=== PATIENT | male | born 1960 | race Caucasian/White ===

== ENCOUNTER 2025-06-02 09:00 | Outpatient (CLI) | payer MEDICARE | END 2025-06-02 09:01 | disposition home or self-care (01) | LOC: CSHCP 09:00 | PROVIDERS: ATTEND Nurse Practitioner Family | DX: R06.2 Wheezing (principal); R94.2 Abnormal results of pulmonary function studies | CPT/HCPCS: 94060; 94664; 94726; 94729; 94760 ==